=== PATIENT | female | born 1995 | race Caucasian/White ===

== ENCOUNTER 2018-04-08 20:05 | Emergency (ER) | payer MEDICAID ==
[~2018-04-08] VITALS: Ht 157.5 cm; Wt 42.5 kg
[2018-04-08] MEDS ORDERED: morphine 4 MG/ML inj SYRINge IV ONE (21:25)
[2018-04-08] MEDS ORDERED: ketorolac trometh. 30mg/ml inj. IV ONE (21:25)
[2018-04-08] MEDS ORDERED: morphine 4 MG/ML inj SYRINge IV PRN (21:25)
[2018-04-08] MEDS ORDERED: normal saline 1000ML IV soln IVB ONE (21:25)
[2018-04-08] MEDS ORDERED: ondansetron/PF 4mg/2ml inj IV ONE (21:25)
[2018-04-08] MEDS ORDERED: ketorolac tromethamine 15mg/ml inj. IV ONE (21:35)
[2018-04-08 21:48] LABS: BASOPHILS # (AUTO) 0.1 X10'3 (0-0.2); BASOPHILS % (AUTO) 0.4 % (0-1); EOSINOPHILS # (AUTO) 0.1 X10'3 (0-0.9); EOSINOPHILS % (AUTO) 0.4 % (0-6); HEMATOCRIT 34.9 % (35.0-45.0); HEMOGLOBIN 11.9 g/dl (12.0-16.0); LYMPHOCYTES # (AUTO) 1.9 X10'3 (1.1-4.8); LYMPHOCYTES % (AUTO) 14.4 % (21-51); MEAN CORPUSCULAR HEMOGLOBIN 33.2 PG (27.0-31.0); MEAN CORPUSCULAR HGB CONC 34.1 % (33.0-36.5); MEAN CORPUSCULAR VOLUME 97.2 FL (78-98); MEAN PLATELET VOLUME 8.8 FL (7.4-10.4); MONOCYTES % (AUTO) 7.5 % (2-12); NEUTROPHILS # (AUTO) 10.1 X10'3 (1.8-7.7); NEUTROPHILS % (AUTO) 77.3 % (42-75); PLATELET COUNT 218 X10'3 (140-440); RED BLOOD COUNT 3.59 X10'6 (4.20-5.60); RED CELL DISTRIBUTION WIDTH 13.4 % (11.5-14.5); WHITE BLOOD COUNT 13.1 X10'3 (4.5-11.0)
[2018-04-08 21:55] LABS: ALANINE AMINOTRANSFERASE 16 U/L (12-78); ALBUMIN 3.5 G/DL (3.4-5.0); ALBUMIN/GLOBULIN RATIO 1.1 (1.1-1.5); ALKALINE PHOSPHATASE 57 IU/L (46-116); ANION GAP 9 (8-16); ASPARTATE AMINO TRANSFERASE 11 U/L (10-37); BILIRUBIN,TOTAL 0.7 MG/DL (0.1-1.0); BLOOD UREA NITROGEN 11 MG/DL (7-18); CALCIUM 8.5 MG/DL (8.5-10.1); CHLORIDE 107 MMOL/L (99-107); CREATININE 0.61 MG/DL (0.40-0.90); GLUCOSE 89 MG/DL (70-104); LIPASE < 50 U/L (73-393); POTASSIUM 3.4 MMOL/L (3.5-5.1); SODIUM 141 MMOL/L (135-145); TOTAL CARBON DIOXIDE 25.1 MMOL/L (24-32); TOTAL PROTEIN 6.7 G/DL (6.4-8.2); eGFR > 90 ML/MIN
[2018-04-08 22:19] LABS: URINE HCG NEGATIVE (NEG)
[2018-04-08 22:21] LABS: CLARITY,URINE CLEAR (Clear); COLOR,URINE YELLOW (Yellow); GLUCOSE, URINE NEGATIVE (Neg); KETONES,URINE >=80 mg/dl (Neg); LEUKOCYTE ESTERASE ,URINE TRACE (Neg); NITRITES, URINE NEGATIVE (Neg); OCCULT BLOOD,URINE NEGATIVE (Neg); PROTEIN,URINE NEGATIVE (Neg); UROBILINOGEN,URINE 0.2 E.U/dL (0.2-1.0)
[2018-04-08 22:27] LABS: UA COLLECTION TYPE CLN CATCH MIDSTREAM
[2018-04-08 22:28] LABS: BACTERIA,URINE FEW /HPF (Neg); MUCUS STRANDS MANY /LPF (Neg); RBC,URINE 0-2 /HPF (0-2); SQUAMOUS EPITHELIAL CELL,UR MANY /LPF (FEW)
[2018-04-09] MEDS ORDERED: ondansetron/PF 4mg/2ml inj IV ONE (00:35)
[2018-04-09] MEDS ORDERED: ONDA4TAB9 SL (00:35)
[2018-04-09] MEDS ORDERED: normal saline 1000ml 1,000 ML IV ONE (00:40)
[2018-04-09 01:21] VITALS: BP 111/50
[2018-04-09] MEDS ORDERED: CEPH500C5 PO (11:57)
[2018-04-09] MEDS ORDERED: HYDR-565 PO (11:57)
== END 2018-04-09 01:15 | disposition home or self-care (01) ==
LOC: ER 20:06
DX: K52.9 Noninfective gastroenteritis and colitis, unspecified (principal); E86.0 Dehydration; F17.210 Nicotine dependence, cigarettes, uncomplicated; Z79.899 Other long term (current) drug therapy
CPT/HCPCS: 36415; 80053; 81001; 81025; 83690; 85025; 96361; 96374; 96375; 96376; 99284; 99406; J1885; J2270; J2405; J7030

== ENCOUNTER 2019-11-16 17:46 | Emergency (ER) | payer MEDICAID ==
[~2019-11-16] VITALS: Ht 154.9 cm; Wt 49.0 kg
[2019-11-16 18:36] LABS: BASOPHILS # (AUTO) 0.1 X10'3 (0-0.2); BASOPHILS % (AUTO) 0.8 % (0-1); EOSINOPHILS % (AUTO) 0.3 % (0-6); HEMATOCRIT 42.4 % (35.0-45.0); HEMOGLOBIN 14.5 g/dl (12.0-16.0); LYMPHOCYTES # (AUTO) 0.8 X10'3 (1.1-4.8); LYMPHOCYTES % (AUTO) 6.2 % (21-51); MEAN CORPUSCULAR HEMOGLOBIN 32.6 PG (27.0-31.0); MEAN CORPUSCULAR HGB CONC 34.1 g/dL (33.0-36.5); MEAN CORPUSCULAR VOLUME 95.5 FL (78-98); MEAN PLATELET VOLUME 8.6 FL (7.4-10.4); MONOCYTES # (AUTO) 0.7 X10'3 (0-0.9); MONOCYTES % (AUTO) 5.5 % (2-12); NEUTROPHILS # (AUTO) 11.3 X10'3 (1.8-7.7); NEUTROPHILS % (AUTO) 87.2 % (42-75); PLATELET COUNT 279 X10'3 (140-440); RED BLOOD COUNT 4.44 X10'6 (4.20-5.60); RED CELL DISTRIBUTION WIDTH 13.3 % (11.5-14.5); WHITE BLOOD COUNT 12.9 X10'3 (4.5-11.0)
[2019-11-16 18:52] LABS: ALANINE AMINOTRANSFERASE 35 U/L (12-78); ALBUMIN 4.8 G/DL (3.4-5.0); ALBUMIN/GLOBULIN RATIO 1.3 (1.1-1.5); ALKALINE PHOSPHATASE 63 IU/L (46-116); ANION GAP 12 (8-16); ASPARTATE AMINO TRANSFERASE 21 U/L (10-37); BILIRUBIN,TOTAL 0.8 MG/DL (0.1-1.0); BLOOD UREA NITROGEN 26 MG/DL (7-18); BUN/CREATININE RATIO 29.5 (6.6-38.0); CHLORIDE 103 MMOL/L (99-107); CREATININE 0.88 MG/DL (0.40-0.90); GLUCOSE 97 MG/DL (70-104); LIPASE 103 U/L (73-393); SODIUM 140 MMOL/L (135-145); TOTAL CARBON DIOXIDE 24.7 MMOL/L (24-32); TOTAL PROTEIN 8.4 G/DL (6.4-8.2); eGFR 80 ML/MIN
[2019-11-16] MEDS ORDERED: acetaminophen 325mg tablet PO STA (19:29)
[2019-11-16] MEDS ORDERED: normal saline 1000ML IV soln IV ONE (19:30)
[2019-11-16] MEDS ORDERED: ondansetron/PF 4mg/2ml inj IV ONE (19:30)
[2019-11-16 19:31] LABS: URINE HCG NEGATIVE (NEG)
[2019-11-16 19:38] LABS: CLARITY,URINE CLEAR (Clear); COLOR,URINE YELLOW (Yellow); GLUCOSE, URINE NEGATIVE (Neg); KETONES,URINE >=80 mg/dl (Neg); LEUKOCYTE ESTERASE ,URINE NEGATIVE (Neg); NITRITES, URINE NEGATIVE (Neg); OCCULT BLOOD,URINE NEGATIVE (Neg); PROTEIN,URINE NEGATIVE (Neg); UROBILINOGEN,URINE 0.2 E.U/dL (0.2-1.0)
[2019-11-16 19:46] LABS: UA COLLECTION TYPE CLN CATCH MIDSTREAM
[2019-11-16] MEDS ORDERED: oseltamivir phos 75mg capsule PO ONE (19:55)
[2019-11-16] MEDS ORDERED: AZIT250T2 PO (20:39)
[2019-11-16] MEDS ORDERED: TAM75C PO (20:39)
[2019-11-16] MEDS ORDERED: ONDA4TAB6 PO (20:39)
[2019-11-16] MEDS ORDERED: PRED20TA PO (20:39)
[2019-11-16] MEDS ORDERED: ipratropium/albuterol 3ml nebule NEB ONE (20:40)
[2019-11-16] MEDS ORDERED: methylPREDNISolone sod succ 125mg/2ml vial IV ONE (20:40)
[2019-11-16 21:05] VITALS: BP 102/66
== END 2019-11-16 21:07 | disposition home or self-care (01) ==
LOC: ER 17:46
DX: J10.1 Influenza due to other identified influenza virus with other respiratory manifestations (principal); R19.7 Diarrhea, unspecified; R11.2 Nausea with vomiting, unspecified; Z98.890 Other specified postprocedural states; Z79.899 Other long term (current) drug therapy
CPT/HCPCS: 36415; 80053; 81003; 81025; 83690; 85025; 87502; 87503; 94640; 96361; 96374; 96375; 99283; J2405; J2930; J7030; 94760

== ENCOUNTER 2020-08-29 18:23 | Emergency (ER) | payer MEDICAID ==
[~2020-08-29] VITALS: Ht 157.5 cm; Wt 47.7 kg
[~2020-08-29 18:23] MED LIST: ONDA4TAB6 PO
[2020-08-29] MEDS ORDERED: normal saline 1000ML IV soln IVB ONE (18:35)
[2020-08-29] MEDS ORDERED: ondansetron/PF 4mg/2ml inj IV ONE (18:35)
[2020-08-29] MEDS ORDERED: ketorolac trometh. 30mg/ml inj. IV ONE (18:35)
[2020-08-29 18:57] LABS: BASOPHILS % (AUTO) 0.6 % (0-1); EOSINOPHILS % (AUTO) 0 % (0-6); HEMATOCRIT 36.3 % (35.0-45.0); HEMOGLOBIN 12.2 g/dl (12.0-16.0); LYMPHOCYTES # (AUTO) 1.2 X10'3 (1.1-4.8); LYMPHOCYTES % (AUTO) 19.3 % (21-51); MEAN CORPUSCULAR HEMOGLOBIN 32.7 PG (27.0-31.0); MEAN CORPUSCULAR HGB CONC 33.6 g/dL (33.0-36.5); MEAN CORPUSCULAR VOLUME 97.4 FL (78-98); MEAN PLATELET VOLUME 8.7 FL (7.4-10.4); MONOCYTES # (AUTO) 0.5 X10'3 (0-0.9); MONOCYTES % (AUTO) 7.5 % (2-12); NEUTROPHILS # (AUTO) 4.6 X10'3 (1.8-7.7); NEUTROPHILS % (AUTO) 72.6 % (42-75); PLATELET COUNT 199 X10'3 (140-440); RED BLOOD COUNT 3.73 X10'6 (4.20-5.60); WHITE BLOOD COUNT 6.3 X10'3 (4.5-11.0)
[2020-08-29 19:01] LABS: CLARITY,URINE CLEAR (Clear); COLOR,URINE ORANGE (Yellow); GLUCOSE, URINE 250 mg/dl (Neg); KETONES,URINE 15 mg/dl (Neg); LEUKOCYTE ESTERASE ,URINE SMALL (Neg); NITRITES, URINE POSITIVE (Neg); OCCULT BLOOD,URINE TRACE-INTACT (Neg); PROTEIN,URINE 100 mg/dl (Neg); UROBILINOGEN,URINE >=8.0 E.U/dL (0.2-1.0)
[2020-08-29 19:02] LABS: UA COLLECTION TYPE CLN CATCH MIDSTREAM
[2020-08-29 19:03] LABS: URINE HCG NEGATIVE (NEG)
[2020-08-29 19:08] LABS: BACTERIA,URINE 2+ /HPF (Neg)
[2020-08-29 19:09] LABS: RBC,URINE 20-50 /HPF (0-2); SQUAMOUS EPITHELIAL CELL,UR MODERATE /LPF (FEW)
[2020-08-29 19:09] LABS: ALANINE AMINOTRANSFERASE 27 U/L (12-78); ALBUMIN 3.6 G/DL (3.4-5.0); ALKALINE PHOSPHATASE 43 IU/L (46-116); ANION GAP 9 (8-16); ASPARTATE AMINO TRANSFERASE 22 U/L (10-37); BILIRUBIN,TOTAL 0.2 MG/DL (0.1-1.0); BLOOD UREA NITROGEN 10 MG/DL (7-18); BUN/CREATININE RATIO 12.3 (6.6-38.0); CALCIUM 8.5 MG/DL (8.5-10.1); CHLORIDE 102 MMOL/L (99-107); CREATININE 0.81 MG/DL (0.40-0.90); GLUCOSE 136 MG/DL (70-104); POTASSIUM 3.7 MMOL/L (3.5-5.1); SODIUM 135 MMOL/L (135-145); TOTAL CARBON DIOXIDE 23.9 MMOL/L (24-32); TOTAL PROTEIN 7.2 G/DL (6.4-8.2); eGFR 87 ML/MIN
--- NOTE | 2020-08-29 19:15 | NUR ---
Pt to CT via w/c.
--- NOTE | 2020-08-29 19:43 | NUR ---
Pt updated with plan of care and is awaiting CT results.
[2020-08-29] MEDS ORDERED: PHEN-716 PO (20:01)
[2020-08-29] MEDS ORDERED: HYDR-4383 PO (20:01)
[2020-08-29] MEDS ORDERED: CEPH250T PO (20:01)
[2020-08-29] MEDS ORDERED: DOXY100C76 PO (20:01)
[2020-08-29] MEDS ORDERED: FLUC150T22 PO (20:01)
[2020-08-29 20:24] VITALS: BP 120/67
== END 2020-08-29 20:26 | disposition home or self-care (01) ==
LOC: ER 18:24
DX: N10 Acute pyelonephritis (principal); M54.5 Low back pain; Z98.890 Other specified postprocedural states; Z79.899 Other long term (current) drug therapy
CPT/HCPCS: 36415; 74176; 80053; 81001; 81025; 85025; 87088; 96361; 96374; 96375; 99284; J1885; J2405; J7030

== ENCOUNTER 2020-11-13 13:53 | Emergency (ER) | payer MEDICAID ==
[~2020-11-13] VITALS: Ht 157.5 cm; Wt 51.6 kg
[~2020-11-13 13:53] MED LIST changes: +HYDR-4383 PO; +PHEN-716 PO
[2020-11-13 15:18] LABS: BASOPHILS % (AUTO) 0.6 % (0-1); EOSINOPHILS # (AUTO) 0.1 X10'3 (0-0.9); HEMATOCRIT 38.3 % (35.0-45.0); HEMOGLOBIN 12.8 g/dl (12.0-16.0); LYMPHOCYTES # (AUTO) 2.8 X10'3 (1.1-4.8); LYMPHOCYTES % (AUTO) 40.4 % (21-51); MEAN CORPUSCULAR HEMOGLOBIN 33.1 PG (27.0-31.0); MEAN CORPUSCULAR HGB CONC 33.4 g/dL (33.0-36.5); MEAN CORPUSCULAR VOLUME 99.3 FL (78-98); MEAN PLATELET VOLUME 8.6 FL (7.4-10.4); MONOCYTES # (AUTO) 0.7 X10'3 (0-0.9); MONOCYTES % (AUTO) 10.3 % (2-12); NEUTROPHILS # (AUTO) 3.3 X10'3 (1.8-7.7); NEUTROPHILS % (AUTO) 47.7 % (42-75); PLATELET COUNT 244 X10'3 (140-440); RED BLOOD COUNT 3.86 X10'6 (4.20-5.60); RED CELL DISTRIBUTION WIDTH 12.9 % (11.5-14.5)
[2020-11-13 15:23] LABS: CLARITY,URINE CLOUDY (Clear); COLOR,URINE YELLOW (Yellow); GLUCOSE, URINE NEGATIVE (Neg); KETONES,URINE NEGATIVE (Neg); LEUKOCYTE ESTERASE ,URINE NEGATIVE (Neg); NITRITES, URINE NEGATIVE (Neg); OCCULT BLOOD,URINE NEGATIVE (Neg); PH,URINE 7.5 (4.8-8.0); PROTEIN,URINE NEGATIVE (Neg); UA COLLECTION TYPE CLN CATCH MIDSTREAM; URINE HCG NEGATIVE (NEG); UROBILINOGEN,URINE 0.2 E.U/dL (0.2-1.0)
[2020-11-13 15:25] LABS: ANION GAP 5 (8-16); BLOOD UREA NITROGEN 14 MG/DL (7-18); BUN/CREATININE RATIO 17.3 (6.6-38.0); CALCIUM 8.4 MG/DL (8.5-10.1); CHLORIDE 104 MMOL/L (99-107); CREATININE 0.81 MG/DL (0.40-0.90); GLUCOSE 89 MG/DL (70-104); POTASSIUM 4.1 MMOL/L (3.5-5.1); SODIUM 138 MMOL/L (135-145); eGFR 87 ML/MIN
[2020-11-13 15:30] LABS: SQUAMOUS EPITHELIAL CELL,UR FEW /LPF (FEW)
[2020-11-13 15:31] LABS: MUCUS STRANDS MODERATE /LPF (Neg)
[2020-11-13 15:32] LABS: BACTERIA,URINE FEW /HPF (Neg); RBC,URINE 0-2 /HPF (0-2); WBC,URINE 0-4 /HPF (0-4)
[2020-11-13 16:16] VITALS: BP 95/60
== END 2020-11-13 16:46 | disposition home or self-care (01) ==
LOC: ER 13:54
DX: M79.604 Pain in right leg (principal); N92.6 Irregular menstruation, unspecified; K21.9 Gastro-esophageal reflux disease without esophagitis; F12.90 Cannabis use, unspecified, uncomplicated; F17.200 Nicotine dependence, unspecified, uncomplicated; Z98.890 Other specified postprocedural states; Z98.891 History of uterine scar from previous surgery; Z79.899 Other long term (current) drug therapy; Z72.89 Other problems related to lifestyle
CPT/HCPCS: 36415; 80048; 81001; 81025; 85025; 93971; 99284

== ENCOUNTER 2022-10-26 05:19 | Emergency (ER) | payer MEDICAID ==
[~2022-10-26] VITALS: Ht 157.5 cm; Wt 50.0 kg
[2022-10-26] MEDS ORDERED: acetaminophen 325mg tablet PO STA (05:36)
[2022-10-26] MEDS ORDERED: ibuprofen tablet 400 MG TABLET PO STA (05:36)
[2022-10-26] MEDS ORDERED: AMOX-441 PO (06:39)
[2022-10-26 06:55] VITALS: BP 103/69
== END 2022-10-26 06:58 | disposition home or self-care (01) ==
LOC: ER 05:20
DX: H66.92 Otitis media, unspecified, left ear (principal); J02.9 Acute pharyngitis, unspecified; K21.9 Gastro-esophageal reflux disease without esophagitis; F17.200 Nicotine dependence, unspecified, uncomplicated; F12.90 Cannabis use, unspecified, uncomplicated
CPT/HCPCS: 99283

== ENCOUNTER 2023-01-21 09:30 | Emergency (ER) | payer MEDICAID ==
[~2023-01-21] VITALS: Ht 157.5 cm; Wt 50.0 kg
[2023-01-21] MEDS ORDERED: morphine 4 MG/ML inj SYRINge IV PRN (11:00)
[2023-01-21] MEDS ORDERED: ondansetron/PF 4mg/2ml inj IV ONE (11:00)
[2023-01-21] MEDS ORDERED: atropine 0.1mg/ml 10ml syringe ONE (11:04)
[2023-01-21 11:25] LABS: BASOPHILS # (AUTO) 0.1 X10'3 (0-0.2); BASOPHILS % (AUTO) 0.7 % (0-1); EOSINOPHILS # (AUTO) 0.5 X10'3 (0-0.9); EOSINOPHILS % (AUTO) 4.2 % (0-6); HEMATOCRIT 37.2 % (35.0-45.0); HEMOGLOBIN 12.4 g/dl (12.0-16.0); LYMPHOCYTES % (AUTO) 17.4 % (21-51); MEAN CORPUSCULAR HEMOGLOBIN 32.3 PG (27.0-31.0); MEAN CORPUSCULAR HGB CONC 33.4 g/dL (33.0-36.5); MEAN CORPUSCULAR VOLUME 96.6 FL (78-98); MEAN PLATELET VOLUME 8.6 FL (7.4-10.4); MONOCYTES # (AUTO) 0.8 X10'3 (0-0.9); MONOCYTES % (AUTO) 7.3 % (2-12); NEUTROPHILS # (AUTO) 7.9 X10'3 (1.8-7.7); NEUTROPHILS % (AUTO) 70.4 % (42-75); PLATELET COUNT 366 X10'3 (140-440); RED BLOOD COUNT 3.85 X10'6 (4.20-5.60); RED CELL DISTRIBUTION WIDTH 13.5 % (11.5-14.5); WHITE BLOOD COUNT 11.2 X10'3 (4.5-11.0)
--- NOTE | 2023-01-21 11:25 | NUR ---
Patient moved from fast track to main ED room 13. Patient endorsed to Morgan FOSTER.
[2023-01-21 11:48] LABS: ALANINE AMINOTRANSFERASE 20 U/L (12-78); ALBUMIN 3.6 G/DL (3.4-5.0); ALBUMIN/GLOBULIN RATIO 0.9 (1.1-1.5); ALKALINE PHOSPHATASE 50 IU/L (46-116); ANION GAP 7 (8-16); ASPARTATE AMINO TRANSFERASE 17 U/L (10-37); BLOOD UREA NITROGEN 12 MG/DL (7-18); BUN/CREATININE RATIO 16.7 (6.6-38.0); CALCIUM 8.9 MG/DL (8.5-10.1); CHLORIDE 107 MMOL/L (99-107); CREATININE 0.72 MG/DL (0.40-0.90); GLUCOSE 89 MG/DL (70-104); POTASSIUM 3.9 MMOL/L (3.5-5.1); SODIUM 141 MMOL/L (135-145); TOTAL CARBON DIOXIDE 26.8 MMOL/L (24-32); TOTAL PROTEIN 7.5 G/DL (6.4-8.2); eGFR > 90 ML/MIN
[2023-01-21 11:52] LABS: D-DIMER 0.25 MG/L FEU (0-0.50)
[2023-01-21 11:57] LABS: BILIRUBIN,TOTAL 0.5 MG/DL (0.1-1.0)
[2023-01-21] MEDS ORDERED: ketorolac trometh. 30mg/ml inj. IV ONE (12:35)
[2023-01-21] MEDS ORDERED: HYDROcodone/acetaminophen 5mg/325mg tablet PO ONE (12:35)
[2023-01-21] MEDS ORDERED: NAPR-56 PO (12:41)
[2023-01-21] MEDS ORDERED: HYDR-3965 PO (12:41)
[2023-01-21 12:55] VITALS: BP 127/87
== END 2023-01-21 13:00 | disposition home or self-care (01) ==
LOC: ER 09:30
DX: R07.81 Pleurodynia (principal); Z20.822 Contact with and (suspected) exposure to COVID-19; R05.9 Cough, unspecified; K21.9 Gastro-esophageal reflux disease without esophagitis; F12.90 Cannabis use, unspecified, uncomplicated; Z98.890 Other specified postprocedural states; Z79.899 Other long term (current) drug therapy
CPT/HCPCS: 36415; 71045; 80053; 85025; 85379; 87635; 93005; 96374; 96375; 99285; C9803; J0461; J1885; J2270; J2405

== ENCOUNTER → 2024-04-18 | Outpatient (CLI) | payer MEDICAID | END | disposition home or self-care (01) | LOC: RAD 13:27 | PROVIDERS: ATTEND Physician Assistant | DX: M79.641 Pain in right hand (principal) | CPT/HCPCS: 73130 ==

== ENCOUNTER → 2025-02-13 | Outpatient (CLI) | payer MEDICAID | END | disposition home or self-care (01) | LOC: RAD 08:55 | PROVIDERS: ATTEND Family Medicine | DX: D25.9 Leiomyoma of uterus, unspecified (principal); R68.89 Other general symptoms and signs | CPT/HCPCS: 76856; 93976 ==

== ENCOUNTER 2025-11-03 11:38 | Outpatient (CLI) | payer MEDICAID ==
--- NOTE | 2025-11-03 14:28 | RADIOLOGY REPORT ---
EXAM: CT CT NECK SOFT TISSUES no contrast INDICATION: LOCALIZED SWELLING, MASS AND LUMP, NECK Exam Date: 11/03/2025 11:59 AM COMPARISON: None TECHNIQUE: Serial axial images of the neck were performed then reformatted in sagittal coronal planes. RADIATION DOSE: CTDIvol: 14 mGy, DLP: 412 mGy*cm FINDINGS: There is no evidence of cervical mass lesion, pathologically enlarged lymph nodes or fluid collection. The fat planes of the neck appear intact. The airway and larynx are unremarkable. The parotid, submandibular and thyroid glands are unremarkable. The vascular structures of the neck appear patent. The visualized lung apices are clear. The limited visualized portions of the brain are unremarkable. The osseous structures are unremarkable. IMPRESSION: This study is severely limited by lack of IV contrast 1. No evidence of cervical mass lesion, pathologically enlarged lymph nodes or fluid collection. 2. If patient can not receive IV contrast and recommend MRI of the soft tissues of the neck
== END 2025-11-03 23:59 | disposition home or self-care (01) ==
LOC: RAD 11:38
PROVIDERS: ATTEND Nurse Practitioner Family
DX: R22.1 Localized swelling, mass and lump, neck (principal)
CPT/HCPCS: 70490